=== PATIENT | female | born 1975 | race Hispanic/Latino ===

== ENCOUNTER 2016-05-12 00:46 | Emergency (ER) | payer OTHER ==
[~2016-05-12] VITALS: Ht 149.9 cm; Wt 68.0 kg
[2016-05-12 00:52] VITALS: BP 141/88; PULSE 103; RESP 18; O2SAT 100
--- NOTE | 2016-05-12 01:16 | ED.REPORT ---
HPI-Abd Pain F 40 and Over Date of Service May 12, 2016 ED Provider: Bhavik Yoder MD Patient is a 40 year old female with a history of depression, psychosis, and anger management issues who presents to the ED via PD from Group [facility] due to dehydration, with the patient refusing PO intake for the past 3 days. She has only had 2-3 small cups of water and consumed two popsicles today. She has refused everything else. Patient is refusing to eat or drink out of anger towards PD, but denies being suicidal or wishing to harm herself. PD brought the patient to the ED for laboratory evaluation and fluids. The patient complains of a headache. She is in care home incarceration and they are attempting to transfer her to [facility]. The patient is cooperative on arrival to the ED and has no other medical complaints. Nursing Notes Stated Complaint: DEHYDRATION Chief Complaint: Psychiatric Complaint Nursing Notes Reviewed: Yes Allergies: Coded Allergies: No Known Allergies (Verified , 05/12/16) General Time Seen by MD: 01:15 Chief Complaint Other (decreased PO intake) Hx Obtained From: Patient, Police Arrived By: Police Sudden in Onset?: No Onset Occurred: 3 days ago Symptom Duration: Waxes and wanes Severity: Current: No pain currently Severity: Maximum: No pain Recent Healthcare: No recent doctor visit, No recent hospitalization Similar Sx Previous: Yes Past Medical History Past Medical History anger management issues depression psychosis Past Surgical History None Smoking History Unknown if Ever Smoker Social History Other Social History: Poor social support, Local resident Ambulatory Status Independent Review of Systems + decreased PO intake GI: Denies: Nausea, Vomiting Complete sys rev & neg: except as marked. Neurologic: Reports: Headache Psychiatric: Denies: Depression, Suicidal ideation Physical Exam Physical Exam Notes: Patient was agitated prior to hydration, exam preformed following rehydration. Vital Signs Vital Signs (First) Date Time Temp Pulse Resp B/P Pulse Ox O2 Delivery O2 Flow Rate FiO2 05/12/16 00:52 36.9 103 18 141/88 100 Room Air Initial VS: Reviewed Head / Eyes: Atraumatic, Normocephalic, PERRL ENT: Mucous membranes moist, Conjunctiva normal, No scleral icterus Neck: Supple, Full range of motion Extremities: Vascular intact, Neuro intact, No swelling Skin: Warm, Dry, No cyanosis Neurologic: Alert, Oriented, Nonfocal Psychiatric: Mood/affect normal, Behavior normal, Normal thought content General/Constitutional: Awake, Alert, No acute distress, Well hydrated Respiratory / Chest: Breath sounds NL, Breath sounds = bilat, No respiratory distress Cardiovascular: Heart rate NL, Regular rhythm, No murmurs Abdomen: Soft, Non-tender, No guarding, No rebound Back: not examined Interpretation & Diagnostics Lab Results Interpretation Result Diagram: 05/12/16 0125 05/12/16 0125 Test 05/12/16 01:25 White Blood Count 5.3th/mm3 (3.8-10.1) Red Blood Count 4.32mil/mm3 (3.90-5.20) Hemoglobin 12.4g/dL (12.0-15.6) Hematocrit 36.3% (35.0-46.0) Mean Corpuscular Volume 84.0fL (81-100) Mean Corpuscular Hemoglobin 28.7pg (27.0-35.0) Mean Corpuscular Hemoglobin Concent 34.2% (32.0-37.0) Red Cell Distribution Width 13.0% (12.3-15.4) Platelet Count 277bil/L (150-400) Neutrophils (%) (Auto) 39.9% (40-74) Lymphocytes (%) (Auto) 44.9% (14-46) Monocytes (%) (Auto) 10.2% (4-12) Eosinophils (%) (Auto) 4.2% (0-5) Basophils (%) (Auto) 0.6% (0-3) Prothrombin Time 10.9sec (8.1-12.5) Prothromb Time International Ratio 1.02ratio Sodium Level 138mEq/L (134-144) Potassium Level 3.3mEq/L (3.5-5.2) Chloride Level 101mEq/L (97-108) Carbon Dioxide Level 21mmol/L (18-29) Blood Urea Nitrogen 16mg/dL (6-24) Creatinine 0.52mg/dL (0.57-1.00) Estimat Glomerular Filtration Rate 185mL/min (>59) Glucose Level 104mg/dL (60-99) Calcium Level 8.9mg/dL (8.5-10.1) Magnesium Level 2.2mg/dL (1.6-2.6) Total Bilirubin 1.1mg/dL (0.0-1.2) Aspartate Amino Transf (AST/SGOT) 33U/L (0-50) Alanine Aminotransferase (ALT/SGPT) 25U/L (0-32) Alkaline Phosphatase 55U/L (25-150) Total Protein 7.9g/dL (6.4-8.4) Albumin 4.4g/dL (3.4-5.0) Lipase 25U/L (13-60) Re-Eval/Medical Decision Med Decision/Clinical Course 40-year-old currently in [facility] has been refusing food and water except for small sips of water. She is referred out of concern for dehydration. She does not appear to be clinically dehydrated. She was provided with 3 L of fluid IV, two of saline and one of lactated Ringer's. Her BUN/creatinine are normal. Her potassium was minimally low. No other significant findings. Discharged fit for custodial in custody. Source of Hx: Old records Re-Evaluation/Progress : Time of Eval: 03:48 Patient Status: Condition improved Re-Evaluation/Progress Note: Rechecked the patient, who has now received fluids in the ED and appears hydrated. No acute problems on labs. Patient has no medical complaints. PD understands and agrees with the plan to be discharged. Discharge instructions and follow-up discussed. All questions were addressed. Return to the ED warnings given. Counseled Regarding: Diagnosis, Lab results, Need for follow-up, When/why to return to ED Discharge & Departure Primary Impression: Dehydration Additional Impression: Medical clearance for incarceration Disposition: Home Discharge Condition All VS Reviewed: Yes Condition: Stable Patient Instructions: Dehydration (ED) Additional Instructions: Drink fluids. Follow-up with the doctor. Return if any immediate issues [facility] FOR [facility] Scribe Attestation Portions of this note were transcribed by Catrachita Morocho. I, Dr. Yoder personally performed the history, physical exam and medical decision-making; I reviewed and confirmed the accuracy of the information in the transcribed note. Signed by: Saqib Barreto, 05/12/2016 0357 Bhavik Yoder MD May 12, 2016 01:16 Catrachita Morocho May 12, 2016 01:27
[2016-05-12] MEDS ORDERED: 0.9% Sodium Chloride 1,000 ML IV ONE (01:20)
[2016-05-12 01:35] LABS: BASOPHILS % (AUTO) 0.6 % (0-3); EOSINOPHILS % (AUTO) 4.2 % (0-5); MONOCYTES % (AUTO) 10.2 % (4-12); Mean Corpuscular Hemoglobin 28.7 pg (27.0-35.0); NEUTROPHILS % (AUTO) 39.9 % (40-74); Platelet Count 277 bil/L (150-400)
[2016-05-12 01:49] LABS: INR 1.02 ratio
[2016-05-12 02:03] LABS: Magnesium 2.2 mg/dL (1.6-2.6)
[2016-05-12] MEDS ORDERED: 0.9% Sodium Chloride 1,000 ML IV SCH (02:10)
[2016-05-12] MEDS ORDERED: Lactated Ringer's 1,000 ML IV ONE (02:30)
[2016-05-12 03:54] VITALS: BP 114/68; PULSE 89; RESP 16; O2SAT 99
== END 2016-05-12 04:22 | disposition home or self-care (01) ==
LOC: SED 00:46
DX: Z02.89 Encounter for other administrative examinations (principal); E86.0 Dehydration; R45.4 Irritability and anger; R51 Headache; F32.9 Major depressive disorder, single episode, unspecified; F29 Unspecified psychosis not due to a substance or known physiological condition; Z87.898 Personal history of other specified conditions
CPT/HCPCS: 36415; 80053; 83690; 83735; 85025; 85610; 96360; 96361; 99284; J7030; J7120

== ENCOUNTER 2016-06-29 15:45 | Emergency (ER) | payer SELFPAY ==
[2016-06-29 15:54] VITALS: BP 147/95; PULSE 88; RESP 18; O2SAT 100
--- NOTE | 2016-06-29 16:12 | ED.REPORT ---
HPI-Psychiatric Illness Date of Service Jun 29, 2016 ED Provider: Claude Bhatt MD A 40 year old female with a history of depression, psychosis, borderline personality disorder, and problems with anger management presents to the ED for a mental health evaluation after exhibiting aggressive, bizarre behaviors while incarcerated. The patient was arrested eight days ago but refused to see a audio tape librarian to be released. Her only current complaint is anger over her time in the alf. She denies suicidal ideation, homicidal ideation, or other symptoms. Nursing Notes Stated Complaint: MENTAL HEALTH Chief Complaint: Psychiatric Complaint Nursing Notes Reviewed: Yes ([employer], [employer] not reconciled) Allergies: Coded Allergies: No Known Allergies (Verified , 06/29/16) General Time Seen by MD: 16:09 Chief Complaint Other (Mental Health Evaluation) Hx Obtained From: Patient Arrived By: Police Onset Occurred: 1 week ago Symptom Duration: Intermittent Severity: Current: No pain currently Severity: Maximum: No pain Pertinent Negative: Pt denies other symptoms Pertinent Negative: Relieved by nothing Related History: Reports: Depression Immunizations: Unknown Recent Healthcare: No recent doctor visit Similar Sx Previous: Yes Risk-Psychiatric Illness Suicide Risk Stratification RF Statements: Risk factors reviewed Past Medical History Past Medical History Anger management issues Depression Psychosis Borderline personality disorder Past Surgical History Reports: Tubal ligation Smoking History Unknown if Ever Smoker Social History Other Social History: Poor social support, Local resident Ambulatory Status Independent Review of Systems Review of Systems Note: + aggressive, bizarre behavior Constitutional: Denies: Fever Respiratory: Denies: Non-productive cough, Shortness of breath GI: Denies: Diarrhea, Vomiting Psychiatric: Denies: Homicidal ideation, Suicidal ideation Complete sys rev & neg: except as marked. Physical Exam Initial Vital Signs Vital Signs (First) Date Time Temp Pulse Resp B/P Pulse Ox O2 Delivery O2 Flow Rate FiO2 06/29/16 15:54 36.7 88 18 147/95 100 Room Air Initial VS: Reviewed, Vital signs normal General/Constitutional: Awake, Alert, No acute distress Neurologic: Oriented X3, Speech NL Psychiatric: Affect NL, Not suicidal, Not homicidal Abnormal Thinking / Perception: Positive: Insight abnormal, Judgment abnormal Respiratory / Chest: Atraumatic, Breath sounds NL, Breath sounds = bilat, No respiratory distress Cardiovascular: Heart rate NL, Regular rhythm, Heart sounds NL, No murmurs, Cap refill not delayed Abdomen: Atraumatic, Soft, Non-tender Skin: Atraumatic Re-Eval/Medical Decision Med Decision/Clinical Course This is a 40-year-old female sent from alf for a DCR evaluation. Patient's had previous ED visits that has been labile as having "psychosis". According to the DCR she demonstrated bizarre behaviors at alf, trying to release her she Refusing to see a audio tape librarian, and for which should have been and overnight charge she ended up being admitted alf for about 8 days as a result of her refusing to see the audio tape librarian. No reports of clear behavior that was dangerous to herself or others, the follow she was released from alf since the ED for further mental health evaluation. The patient has no complaints here. She denies being on any medications or having him admitted major medical issues. She denies substance abuse. Patient's calm and cooperative and denies suicidal ideation or homicidal ideation. She demonstrates limited insight and talk about that she is upset about being in alf, even though by all descriptions they have been trying to get her released from alf but her refusal to even see or talk to a audio tape librarian's with complicated matters. The patient was seen by the DCR-has been not found to be detainable. There were no findings that she presented an imminent danger to self or others and is not gravely disabled. While the patient has limited insight and what appears to be some poor judgment , not demonstrate lying in acute medical condition for altered mental status necessitate further testing. The patient immediately wants to leave. I have recommended referral follow up with Jose Nugent, with whom she seen in the past. Patient is discharged in stable condition. Source of Hx: Old records Re-Evaluation/Progress : Time of Eval: 16:45 Patient Status: Condition improved Re-Evaluation/Progress Note: Discussed with patient diagnosis and plan for discharge. Follow-up and return to the ER instructions given. Patient agrees with plan for care and all questions were addressed. Differential Diagnosis: Negative: Homicidal, Suicidal Counseled Regarding: Diagnosis, Need for follow-up, When/why to return to ED Discharge & Departure Impression: Primary Impression: Bizarre behavior Disposition: Home Discharge Condition All VS Reviewed: Yes Condition: Improved Additional Instructions: 1. You have been released from alf and sent to the ED for a mental health evaluation. 2. You indicated you do not have thoughts of hurting herself or others. You were seen and evaluated by the [facility] mental health worker and were not found to require senior living 3. We do recommend following up with [facility]. 1. Le soltaron de la carcel y fue enviado al departamento de emergencia para yuridia evaluacion de [facility] mental. 2. Ud. benavides indicado que no tiene pensamientos de lastimar a si misma ni a otros. Ud fue atendida y evaluada por el trabajador de [facility] mental del condado y fue encontrado que no requiere detencion. 3. Nosotros si recomendamos un seguimiento con [facility] Referrals: [facility] (PCP) [facility] Scribe Attestation Portions of this note were transcribed by Nancy Luque. I, Dr. Bhatt, personally performed the history, physical exam, and medical decision-making; I reviewed and confirmed the accuracy of the information in the transcribed note. Signed by: Saqib Banks, 06/29/2016, [id number] copies to: [facility] Claude Bhatt MD Jun 29, 2016 16:12 NANCY LUQUE Jun 29, 2016 16:38
[2016-06-29 16:58] VITALS: BP 147/95; PULSE 88; RESP 18; O2SAT 100
== END 2016-06-29 17:02 | disposition home or self-care (01) ==
LOC: SED 15:45
DX: R46.2 Strange and inexplicable behavior (principal)